=== PATIENT | female | born 1985 | race Caucasian/White ===

== ENCOUNTER 2020-07-25 06:33 | Day surgery (SDC) | payer BC ==
[2020-07-19 14:31] LABS: Absolute Lymphocytes (CBC) 1.5 K/uL (0.7-4.9); Basophils % 0.5 % (0-1.3); Hematocrit 40.7 % (36.0-45.0); Lymphocytes % 27.1 % (15.3-44.8); MPV 10.2 fL (7.6-11.3); RBC Red Blood Cell Count 4.59 M/uL (3.86-4.86)
[2020-07-19 14:49] LABS: Potassium 3.6 mmol/L (3.5-5.1)
--- OUTSIDE RECORDS SUMMARY | 2020-07-25 06:39 | XMS REPORT | Clinical Summary ---
:1985 Author Organization [facility] Address [address] [place] [address] Care Team Providers Name Role Phone Abbie Ferrer MD Primary Care Provider Allergies No Known Active Allergies Medications Medication Sig Dispensed Refills Start Date End Date Status MULTIVIT-MINERALS/FERR Take 1 tablet by 0 Active OUS FUM (MULTI VITAMIN mouth daily. ORAL) CALCIUM CITRATE ORAL Take 2 tablets by 0 Active mouth daily. CHOLECALCIFEROL, Take 1 tablet by 0 Active VITAMIN D3, (VITAMIN mouth daily. D3 ORAL) ranitidine (ZANTAC) Take 150 mg by 0 Active 150 MG tablet mouth 2 (two) times a day. cyanocobalamin, Place 5,000 mcg 0 Active vitamin B-12, 5,000 under the tongue mcg tablet, sublingual daily. Active Problems Problem Noted Date Osteoarthritis 03/23/2017 Primary osteoarthritis of right knee 12/10/2016 Encounters Date Type Specialty Care Team Description 02/29/2020 Travel after 07/25/2019 Surgical History Surgery Date Site/Laterality Comments KNEE ARTHROSCOPY W/ ACL 10/11/2003 - Right torn ACL and meniscus RECONSTRUCTION 10/10/2004 KNEE ARTHROSCOPY W/ MENISCAL 10/11/2012 - Right REPAIR 10/10/2013 BARIATRIC SURGERY 10/11/2014 - gastric sleeve 10/10/2015 SECTION KNEE ARTHROPLASTY 03/23/2017 Right ARTHROPLASTY, KNEE, TOTAL 03/23/2017 Knee/Right Proced ure: RIGHT TOTAL KNEE ARTHROPLAST Y; Surgeon: Ino Gasca MD; Loca tion: [facility] Main OR; Service: Orthope dics; Laterality: Righ t; Medical devices from this surgery are in the Implants sec tion. Medical History Medical History Date Comments Arthritis PONV (postoperative nausea and vomiting) Family History Medical History Relation Name Comments Diabetes Father Heart disease Father Cancer Mother thyroid Heart disease Mother Relation Name Status Comments Father Alive Mother Alive Social History Tobacco Use Types Packs/Day Years Used Date Never Smoker Smokeless Tobacco: Never Used Alcohol Use Drinks/Week oz/Week Comments Not Asked 1-2 Standard drinks or equivalent 1.0 - 2.0 SOCIALLY Sex Assigned at Date Recorded Not on file Last Filed Vital Signs Not on file Plan of Treatment Health Maintenance Due Date Last Done Comments CERVICAL CANCER SCREENING 2004 INFLUENZA VACCINE 05/11/2020 Implants Implanted Type 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 [employer]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 Device Shelf Model / Identifier Expiration Serial / Lot Date Triathlon Cemented Stem-15mm X 50mm - [id number] IMPLANT Right: DINH 04/10/2020 5560 S 115 / Implanted: Qty: 1 on 03/23/2017 at [facility] DEVICES Knee O RTHOPEDICS / [id number] Triathlon Ps X3 Tibial Insert - [id number] IMPLANT Right: SIRISHA ADDISON 10/27/2021 5532 G 611 / Implanted: Qty: 1 on 03/23/2017 at [facility] DEVICES Knee O RTHOPEDICS / [id number] Augment Tib Triathlon Rm/Ll Ts Sz 6 5mm - [id number] Knee Joint Right: DINH 05/11/2018 5545 A 602 / Implanted: Qty: 1 on 03/23/2017 at [facility] Implants Knee O RTHOPEDICS / [id number] Implant Ptlr X3 Asymet Sprr / Infr [id number] - [id number] Knee Join t Right: DINH 08/12/2021 5551 G 320 / Implanted: Qty: 1 on 03/23/2017 at [facility] Implants Knee O RTHOPEDICS / [id number] Component Fml Rt Cementd P-Stb Sz 7 Triathlon - [id number] Knee J oint Right: DINH 12/09/2021 5515 F 702 / Implanted: Qty: 1 on 03/23/2017 at [facility] Implants Knee O RTHOPEDICS / [id number] Baseplate Tib Triathlon Cementd Univl Sz 6 - [id number] Knee Join t Right: DINH 11/24/2021 5521 B 600 / Implanted: Qty: 1 on 03/23/2017 at [facility] Implants Knee O RTHOPEDICS / [id number] Cement Bone Full-Dose Premxd W/ Tobr Simplex P Pack 10/Ea - [id number] Surgical Right: DINH 09/09/2018 [id number] / Implanted: Qty: 1 on 03/23/2017 at [facility] Bone Cement Knee ORTHOPEDICS / [id number] Cement Bone Full-Dose Premxd W/ Tobr Simplex P Pack 10/Ea - [id number] Surgical Right: DINH 07/10/2018 [id number] / Implanted: Qty: 1 on 03/23/2017 at [facility] Bone Cement Knee ORTHOPEDICS / [id number] Cement Bone Prep Univl Insrtr Sculp Fml [place] - [id number] Surgical Right: DINH 10/11/2020 [id number] / Implanted: Qty: 1 on 03/23/2017 at [facility] Implants; Knee I NSTRUMENTS / Expanders; [id number] Extenders; Surgical Wires Results Not on fileafter 07/25/2019 50 1 Advance Directives For more information, please contact: [phone] Type Date 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
[2020-07-25] MEDS ORDERED: Ringers Lactate 1,000 ML IV ONE (07:00)
[2020-07-25] MEDS: CEFAZOLIN/SWI 1gm 1 GM/10 ML SYR ONE ×2 (07:22→07:51)
[2020-07-25] MEDS ORDERED: SCOPOLAMINE HYDROBROMIDE PATCH TD ONE ×2 (07:30→07:43)
[2020-07-25] MEDS ORDERED: ROCURONIUM 50 MG/5 ML VIAL IV ONE ×2 (07:35→08:34)
[2020-07-25] MEDS ORDERED: MIDAZOLAM HCL 2 MG/2 ML INJ ONE (07:35)
[2020-07-25] MEDS ORDERED: propofoL 200 MG/20 ML VIAL IV ONE (07:35)
[2020-07-25] MEDS ORDERED: LIDOCAINE 1% MPF 5 ML VIAL ONE (07:35)
[2020-07-25] MEDS ORDERED: FENTANYL CITR 250 MCG/5 ML ONE (07:36)
[2020-07-25] MEDS ORDERED: KETOROLAC 30 MG/ML INJ ONE (08:33)
[2020-07-25] MEDS ORDERED: ONDANSETRON 4 MG/2 ML VIAL ONE (08:34)
[2020-07-25] MEDS ORDERED: dexAMETHasone 4 MG/ML VIAL ONE (08:34)
[2020-07-25] MEDS ORDERED: GLYCOPYRROLATE 0.2 MG/ML SYR ONE (08:47)
[2020-07-25] MEDS ORDERED: NEOSTIGMINE 1 MG/ML -5 ML ONE (08:57)
[2020-07-25] MEDS: HYDROMORPHONE HCL 1 MG/ML INJ ONE ×4 (09:20→09:40)
[2020-07-25] MEDS: MEPERIDINE HCL 25 MG/ML SYR ONE ×2 (09:30→09:35)
--- NOTE | 2020-07-25 09:39 | OP ---
Date of Procedure: 07/25/2020 Surgeon: Rubens Haywood MD Planning Coordinator: ALEXEI Kemp. Preoperative Diagnosis: Bilateral inguinal hernia. Postoperative Diagnosis: Bilateral inguinal hernia. Procedure Performed: Repair of bilateral inguinal hernia. Estimated Blood Loss: Minimal. Specimen: Hernia sac. Finding: As above. Anesthesia: General. Complications: None. Disposition: The patient tolerated the procedure in stable condition, taken to Recovery in good gene ral condition. Description Of Procedure: The patient was brought to the OR and placed in supine position and the ge neral anesthesia was begun. Patient was prepped and draped in the usual sterile fashion. Marcaine 0 .5% was infiltrated locally in the field block fashion. Then, a 15 blade was used to make a 4 cm obl ique incision in the pubic tubercle from between the pubic tubercle and the right anterior iliac supe rior spine. Subcutaneous tissue was divided. Chang's fascia was identified and divided. Aponeuros is was identified and mobilized inferiorly and exposed the external ring, which was opened through th e aponeurosis and then a large direct hernia was identified. It was freed from surrounding tissue an d then round ligament was identified and divided, and then the hernia sac was excised by closing the base of the sac with 0 Prolene running suture interlocking. Then the hernia sac was excised and sent to Pathology as specimen. Then, Marlex mesh was placed on the inguinal floor, secured me dially to the pubic tubercle, inferior to the shelving edge, laterally to each other and superior to the conjoint tendon. Then 2-0 Prolene was used to close the aponeurosis, 3-0 chromic was used to abigail se the Chang's fascia and skin. Exactly same operation took place on the other one but the hernia s ac was not excised as it was smaller, and it was reduced back into the peritoneal cavity and inguinal floor was recreated using 0 Prolene starting at the pubic tubercle and recreating the floor and join ed the conjoined tendon to the shelving edge, and internal ring was small there so the Marlex mesh pl ug was placed, secured with VersaTack stapler. An [place] mesh was placed in the standard fashion and 2-0 Prolene was used to close the aponeurosis and 3-0 chromic was used to close Chang's fascia and s kin dressing was applied. Patient was awakened and taken to Recovery in good general condition. /MODL Voice ID: [id number] Report ID: [id number]
--- NOTE | 2020-07-25 09:45 | DS ---
The patient will go to Day Surgery and home when stable. Disposition: Home. Condition: Stable. Discharge Instructions: Resume home medications and diet. Activity as tolerated. No heavy lifting. Remove outer dressing in 2 days. Shower. Keep wound clean and dry. Keep Steri-Strips on all time s. Follow up in my office in 1 week. Call for appointment. Tylenol No. 3 one tablet p.o. q.4 p.r.n . pain. Ice pack as ordered. RAD/TORRI Voice ID: [id number] Report ID: [id number]
[2020-07-25 09:59] VITALS: O2SAT 97
[2020-07-25] MEDS ORDERED: HYDROCODONE/APAP 7.5/325 MG TAB ONE (10:27)
[2020-07-25 12:37] VITALS: BP 101/54; TEMP 97.4
== END 2020-07-25 11:05 | disposition home or self-care (01) ==
LOC: OR 06:33
PROVIDERS: ATTEND Surgery
PROC: 0YUA0JZ Supplement Bilateral Inguinal Region with Synthetic Substitute, Open Approach (ICD-10-PCS; principal; 2020-07-25 07:30)
DX: K40.20 Bilateral inguinal hernia, without obstruction or gangrene, not specified as recurrent (principal); Z20.828 Contact with and (suspected) exposure to other viral communicable diseases
CPT/HCPCS: 85025; 80048; 36415; 81025; 88302; 49505; U0002; J2704; J1100; J2250; J3010; J2175; J1170 ×2; J2710; J0690; J7120; J2405

== ENCOUNTER → 2021-12-16 | Day surgery (SDC) | payer BC ==
--- NOTE | 2021-12-16 11:20 | RAD REPORT ---
EXAM DESCRIPTION: US - Guided FNA Non Breast - 12/16/2021 10:22 am CLINICAL HISTORY: E04.1 COMPARISON: No comparisons FINDINGS: Preoperative diagnosis: Left thyroid nodule. Post operative diagnosis: Same. Conscious Sedation: None Fluoroscopy time: None Contrast used: None Estimated blood loss: Minimal Specimens:25 gauge x 8 The left neck was prepped and draped in the usual sterile fashion. 1% lidocaine was infiltrated into the subcutaneous tissues for local anesthesia. Real time ultrasound scanning of the left thyroid lobe Demonstrated 14 mm nodule inferiorly with microcalcifications. Under ultrasound guidance, using 25 g auge FNA needle, 8 specimens were obtained of this lesion and sent to pathology for evaluation. There were no complications. IMPRESSION: Successful ultrasound-guided FNA procedure left thyroid nodule as detailed.
== END ==
LOC: FNA 10:04
PROVIDERS: ATTEND Internal Medicine Endocrinology, Diabetes & Metabolism
PROC: 0GJK3ZZ Inspection of Thyroid Gland, Percutaneous Approach (ICD-10-PCS; principal; 2021-12-16)
DX: E04.1 Nontoxic single thyroid nodule (principal)
CPT/HCPCS: 88162

== ENCOUNTER 2024-06-12 15:37 | Emergency (ER) | payer BC ==
--- NOTE | 2024-06-12 16:13 | RAD REPORT ---
EXAM DESCRIPTION: RAD - Chest Single View - 06/12/2024 4:08 pm CLINICAL HISTORY: PALPITATIONS COMPARISON: No comparisons FINDINGS: Lines: Loop recorder. Lungs: No evidence of edema or pneumonia. Pleural: No significant pleural effusions or pneumothorax. Cardiac: The heart size is within normal limits. Mediastinum: Within normal limits. Bones: No acute fractures. Other: None IMPRESSION: No acute cardiopulmonary disease.
[2024-06-12 16:31] LABS: Absolute Eosinophils 0.1 K/uL (0-0.5); Absolute Lymphocytes (CBC) 1.5 K/uL (0.7-4.9); Absolute Monocytes 0.5 K/uL (0.1-1.3); Absolute Neutrophil 2.9 K/uL (1.8-8.0); Basophils % 0.4 % (0-1.3); Eosinophils % 1.9 % (0-4.4); Hematocrit 37.2 % (36.0-45.0); Hemoglobin 12.4 g/dL (12.0-15.0); Lymphocytes % 30.4 % (15.3-44.8); MCHC 33.2 g/dL (32.0-36.0); MCV 90.3 fL (80-100); MPV 9.5 fL (7.6-11.3); Monocytes % 9.7 % (3.3-12.3); Neutrophils % 57.6 % (41.7-73.7); Nucleated Red Blood Cells % 0.1 % (0-0); Platelets 179 thou/uL (152-406); RBC Red Blood Cell Count 4.13 M/uL (3.86-4.86); Red Cell Distribution Width 13.6 % (12.1-15.2)
[2024-06-12 16:49] LABS: PT Prothrombin Time 12.1 SECONDS (9.4-12.5); Protime INR 1.08
[2024-06-12 16:59] LABS: ALT/SGPT 23 U/L (13-56); Albumin 3.4 g/dL (3.4-5.0); Albumin/Globulin Ratio 1.1 (1.1-1.8); Alkaline Phosphatase 37 U/L (45-117); Anion Gap 9.5 mEq/L (5.0-15.0); BUN Blood Urea Nitrogen 13 mg/dL (7-18); Bicarbonate 23 mEq/L (21-32); Bilirubin Direct 0.2 mg/dL (0-0.2); Bilirubin Indirect, Calculated 0.2 mg/dL (0.2-0.8); Bilirubin Total 0.4 mg/dL (0.2-1.0); Globulin 3.1 g/dL (2.3-3.5); Glomerular Filtration Rate 91 ml/min (=/>90); Glucose Level 79 mg/dL (74-106); Magnesium 1.9 mg/dL (1.6-2.4); NT PRO-BNP 448 pg/mL (<125); Potassium 3.5 mEq/L (3.5-5.1); Protein, Total 6.5 g/dL (6.4-8.2); Sodium Level 138 mEq/L (136-145); Troponin High Sensitivity 4.1 pg/mL (<58.9)
[2024-06-12 17:06] LABS: AST/SGOT < 10 U/L (15-37)
--- NOTE | 2024-06-12 17:19 | ER ---
Nurse's Notes [facility] Name: Gisel Shaw Age: 38 yrs Sex: Female : 1985 Arrival Date: 06/12/2024 Time: 15:37 Bed 5 Private MD: Diagnosis: Palpitations, sinus arrhythmia Presentation: 06/12 15:54 Chief complaint: Patient states: STATES PALPITATIONS STARTED WEDNESDAY AND THEN AGAIN db TODAY. HAD HOLE IN HEART FIXED IN OCTOBER. APRIL EVAL SHOWED THE HOLE IS STILL NOT CLOSED. DENIES PAIN. Coronavirus screen: Client denies travel out of the [place] in the last 14 days. At this time, the client does not indicate any symptoms associated with coronavirus-19. Ebola Screen: Patient negative for fever greater than or equal to 101.5 degrees Fahrenheit, and additional compatible Ebola Virus Disease symptoms Patient denies exposure to infectious person. Patient denies travel to an Ebola-affected area in the 21 days before illness onset. No symptoms or risks identified at this time. Initial Sepsis Screen: Does the patient meet any 2 criteria? No. Patient's initial sepsis screen is negative. Does the patient have a suspected source of infection? No. Patient's initial sepsis screen is negative. Risk Assessment: Do you want to hurt yourself or someone else? Patient reports no desire to harm self or others. Onset of symptoms was June 12, 2024. 15:54 Method Of Arrival: Ambulatory db 15:54 Acuity: SHER 2 db Triage Assessment: 15:57 General: Appears in no apparent distress. comfortable, Behavior is calm, cooperative. db Pain: Denies pain. Neuro: Level of Consciousness is awake, alert, obeys commands, Oriented to person, place, time, situation. 15:57 Cardiovascular: Reports palpitations, Capillary refill < 3 seconds. Respiratory: Airway db is patent Respiratory effort is even, unlabored, Respiratory pattern is regular, symmetrical. 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 - Infectious Disease History:: Denies. - Social history:: Smoking status: Patient denies any tobacco usage or history of. Screenin:[facility] ED Fall Risk Assessment (Adult) History of falling in the last 3 months, kc6 including since admission No falls in past 3 months (0 pts) Confusion or Disorientation No (0 pts) Intoxicated or Sedated No (0 pts) Impaired Gait No (0 pts) Mobility Assist Device Used No (0 pt) Altered Elimination No (0 pt) Score/Fall Risk Level 0 - 2 = Low Risk Oriented to surroundings. Abuse screen: Denies threats or abuse. Denies injuries from another. Nutritional screening: No deficits noted. Tuberculosis screening: No symptoms or risk factors identified. Vital Signs: 15:54 BP 126 / 74; Pulse 66; Resp 16; Temp 98.4; Pulse Ox 100% ; Weight 79.38 kg; Height 5 db ft. 6 in. ; 15:54 Body Mass Index 28.25 (79.38 kg, 167.64 cm) db ED Course: 15:40 Patient arrived in ED. ra3 15:43 Lisa Hobbs MD is Attending Physician. sp3 15:55 Triage completed. db 15:57 Arm band placed on Patient placed in an exam room. db 16:09 XRAY Chest (1 view) In Process Unspecified. EDMS 16:12 AMANDA MCCAIN, RN is Primary Nurse. dd2 16:12 No provider procedures requiring assistance completed. EKG done, by ED staff, reviewed dd2 by Lisa Hobbs MD. 16:28 Accessed peripheral vein via ultrasound, utilizing dynamic ultrasound technique using kc6 20G Nexia IV catheter ,sterile technique, per hospital protocol. Clean \T\ dry. Dressing intact. Good blood return. Flushes easily. Patient maintains SpO2 saturation greater than 95% on room air. 16:30 Patient has correct armband on for positive identification. Bed in low position. Call kc6 light in reach. Side rails up X 1. Adult w/ patient. coating manager on. Pulse ox on. NIBP on. Door closed. Noise minimized. Lights dimmed. Warm blanket given. Pillow given. 17:36 Provided Education on: f/u with master automotive glass technician. kc6 17:36 IV discontinued, intact, bleeding controlled, No redness/swelling at site. Pressure kc6 dressing applied. Administered Medications: No medications were administered Medication: 17:36 VIS not applicable for this client. kc6 Outcome: 17:18 Discharge ordered by . sp3 17:36 Discharged to home ambulatory, with family, with significant other, kc6 17:36 Condition: good 17:36 Discharge instructions given to patient, significant other, Instructed on discharge instructions, follow up and referral plans. Demonstrated understanding of instructions, follow-up care, 17:36 Patient left the ED. kc6 Signatures: Dispatcher [employer] EDLisa Mccall MD MD sp3 Brinda Carroll RN RN kc6 Joan Gonzalez RN RN Shirlene Longo ra3 AMANDA MCCAIN RN RN dd2
--- NOTE | 2024-06-12 17:19 | EDPHYS ---
Physician Documentation [facility] Name: Gisel Shaw Age: 38 yrs Sex: Female : 1985 Arrival Date: 06/12/2024 Time: 15:37 Bed 5 Private MD: ED Physician Lisa Hobbs HPI: 06/12 17:14 This 38 yrs old Female presents to ER via Ambulatory with complaints of Heart sp3 palpitations. 17:14 38-year-old female with a history of TIA, patent foramen ovale s/p repair history of sp3 sinus arrhythmia currently on aspirin and Plavix presents to the ED with chief complaint palpitations which have now resolved. Patient states that started just prior to arrival and she felt "her heart beating intensely" but all of that has now resolved. She denies any chest pain at any time, shortness of breath, abdominal pain, nausea, vomiting, diarrhea, back pain, headache, neck pain, fever, known sick contacts, prolonged immobilization, prior DVT or PE, any change in medications, or any other signs or symptoms on ROS at this time. 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 - Infectious Disease History:: Denies. - Social history:: Smoking status: Patient denies any tobacco usage or history of. ROS: 17:15 Constitutional: Negative for fever, chills, and weight loss, Eyes: Negative for injury, sp3 pain, redness, and discharge, ENT: Negative for injury, pain, and discharge, Neck: Negative for injury, pain, and swelling, Respiratory: Negative for shortness of breath, cough, wheezing, and pleuritic chest pain, Abdomen/GI: Negative for abdominal pain, nausea, vomiting, diarrhea, and constipation, Back: Negative for injury and pain, MS/Extremity: Negative for injury and deformity, Skin: Negative for injury, rash, and discoloration, Neuro: Negative for headache, weakness, numbness, tingling, and seizure, Psych: Negative for depression, anxiety, suicide ideation, homicidal ideation, and hallucinations, Allergy/Immunology: Negative for hives, rash, and allergies, Endocrine: Negative for neck swelling, polydipsia, polyuria, polyphagia, and marked weight changes, Hematologic/Lymphatic: Negative for swollen nodes, abnormal bleeding, and unusual bruising, 17:15 All other systems are negative, Exam: 17:15 Constitutional: This is a well developed, well nourished patient who is awake, alert, sp3 and in no acute distress. Head/Face: Normocephalic, atraumatic. Eyes: Pupils equal round and reactive to light, extra-ocular motions intact. Lids and lashes normal. Conjunctiva and sclera are non-icteric and not injected. Cornea within normal limits. Periorbital areas with no swelling, redness, or edema. Neck: Trachea midline, no thyromegaly or masses palpated, and no cervical lymphadenopathy. Supple, full range of motion without nuchal rigidity, or vertebral point tenderness. No Meningismus. Chest/axilla: Normal chest wall appearance and motion. Nontender with no deformity. No lesions are appreciated. Respiratory: Lungs have equal breath sounds bilaterally, clear to auscultation and percussion. No rales, rhonchi or wheezes noted. No increased work of breathing, no retractions or nasal flaring. Abdomen/GI: Soft, non-tender, with normal bowel sounds. No distension or tympany. No guarding or rebound. No evidence of tenderness throughout. Back: No spinal tenderness. No costovertebral tenderness. Full range of motion. Skin: Warm, dry with normal turgor. Normal color with no rashes, no lesions, and no evidence of cellulitis. MS/ Extremity: Pulses equal, no cyanosis. Neurovascular intact. Full, normal range of motion. Neuro: Awake and alert, GCS 15, oriented to person, place, time, and situation. Cranial nerves II-XII grossly intact. Motor strength 5/5 in all extremities. Sensory grossly intact. Cerebellar exam normal. Normal gait. Psych: Awake, alert, with orientation to person, place and time. Behavior, mood, and affect are within normal limits. 17:15 Cardiovascular: Sinus arrhythmia noted with PVCs on the monitor, 17:16 ECG was reviewed by the Attending Physician. EKG demonstrates normal sinus rhythm at 70 sp3 bpm with sinus arrhythmia, normal axis, normal intervals, scattered PVCs without any sustained beats. This EKG was essentially the same across multiple readings. Vital Signs: 15:54 BP 126 / 74; Pulse 66; Resp 16; Temp 98.4; Pulse Ox 100% ; Weight 79.38 kg; Height 5 db ft. 6 in. ; 15:54 Body Mass Index 28.25 (79.38 kg, 167.64 cm) db MDM: 15:52 Patient medically screened. sp3 17:16 Data reviewed: vital signs, nurses notes, lab test result(s), EKG, radiologic studies. sp3 ED course: 38-year-old female with palpitations now resolved. Differential diagnosis includes electrolyte abnormality, cardiac arrhythmia, ACS, other thoracic pathology. EKG demonstrates no atrial fibrillation or paroxysmal atrial fibrillation. Workup included EKG, chest x-ray which was normal and laboratory values which are also normal. I offered patient 23-hour observation to keep her on the monitor to assess for potential ventricular tachycardia or other arrhythmia. However patient declines and states she wants to go home. She has had a history of similar symptoms in the past. She just wanted to make sure her blood work and everything was okay. She states she will follow-up with her automotive parts manager at [facility]. I advised her that she may return here at any time if she changes her mind or has recurrent symptoms. She understands the risk of potentially fatal cardiac arrhythmia occurring at home and states she is okay with that possibility/risk. also in the room and understands these things as well and states that he will bring her back if needed. At this time we will safely discharge home at this time with copies of her EKG and lab work.. 06/12 15:51 Order name: Basic Metabolic Panel; Complete Time: 17:07 sp3 06/12 15:51 Order name: CBC with Diff; Complete Time: 16:58 sp3 06/12 15:51 Order name: LFT's; Complete Time: 17:07 sp3 06/12 15:51 Order name: Magnesium; Complete Time: 17:07 sp3 06/12 15:51 Order name: NT PRO-BNP; Complete Time: 17:07 sp3 06/12 15:51 Order name: PT-INR; Complete Time: 16:53 sp3 06/12 15:51 Order name: Troponin HS; Complete Time: 17:07 sp3 06/12 15:51 Order name: XRAY Chest (1 view); Complete Time: 16:16 sp3 06/12 15:51 Order name: EKG; Complete Time: 15:51 sp3 06/12 15:51 Order name: Cardiac monitoring; Complete Time: 16:08 sp3 06/12 15:51 Order name: EKG - Nurse/Tech; Complete Time: 16:08 sp3 06/12 15:51 Order name: IV Saline Lock; Complete Time: 16:24 sp3 06/12 15:51 Order name: Labs collected and sent; Complete Time: 16:24 sp3 06/12 15:51 Order name: O2 Per Protocol; Complete Time: 16:08 sp3 06/12 15:51 Order name: O2 Sat Monitoring; Complete Time: 16:08 sp3 Administered Medications: No medications were administered Disposition Summary: 06/12/24 17:18 Discharge Ordered Notes: Location: Home sp3 Condition: Stable sp3 Diagnosis - Palpitations, sinus arrhythmia sp3 Followup: sp3 - With: Private Physician - When: Upon discharge from the Emergency Department - Reason: Continuance of care Discharge Instructions: - Discharge Summary Sheet sp3 - Palpitations sp3 Forms: - Medication Reconciliation Form sp3 - Antibiotic Education sp3 - Prescription Opioid Use sp3 - Patient Portal Instructions sp3 - Leadership Thank You Letter sp3 Signatures: Dispatcher [employer] Lisa Crawley MD MD sp3 Joan Gonzalez, RN RN db
[2024-06-12 17:47] VITALS: BP 126/74; TEMP 98.4; O2SAT 100
--- NOTE | 2024-06-13 12:37 | EKG ---
Test Date: 2024-06-12 Test Time: 16:44:17 [employer]: GRECIA MEASUREMENT RESULTS: Intervals: Rate: 69 UT: 146 QRSD: 86 QT: 430 QTc: 460 [place]: P: 77 UT: 146 QRS: 11 T: 24 INTERPRETIVE STATEMENTS: Sinus rhythm with marked sinus arrhythmia with occasional premature ventricular complexes Otherwise normal ECG Compared to ECG 06/12/2024 16:09:46 Atrial premature complex(es) no longer present Electronically Signed On 06-13-24 12:36:13 CDT by Luis Woods
--- NOTE | 2024-06-13 12:37 | EKG ---
Test Date: 2024-06-12 Test Time: 16:09:46 Manager Mining: SKYLER MEASUREMENT RESULTS: Intervals: Rate: 72 NE: 136 QRSD: 90 QT: 406 QTc: 444 [place]: P: 85 NE: 136 QRS: 20 T: 42 INTERPRETIVE STATEMENTS: Sinus rhythm with premature supraventricular complexes and with occasional premature ventricular complexes Otherwise normal ECG No previous ECG available for comparison Electronically Signed On 06-13-24 12:36:15 CDT by Luis Woods
== END 2024-06-12 17:36 | disposition home or self-care (01) ==
LOC: ER 15:37
DX: I49.8 Other specified cardiac arrhythmias (principal); Z86.73 Personal history of transient ischemic attack (TIA), and cerebral infarction without residual deficits; Z79.01 Long term (current) use of anticoagulants; Z79.82 Long term (current) use of aspirin
CPT/HCPCS: 93005; 99284